=== PATIENT | female | born 1940 | race Caucasian/White ===

== ENCOUNTER 2024-07-21 15:07 | Outpatient (CLI) | payer MEDICARE, SELFPAY ==
--- NOTE | ~2024-07-21 | XR_ITS ---
XR chest 2V 07/21/2024 15:34 Indication: Acute bronchitis Procedure: 2 view chest Comparison: No prior studies for comparison. Findings: The lungs are hyperinflated which is consistent with, but not diagnostic of chronic obstruc tive pulmonary disease. There is apical pleural thickening/scarring. There are coarse interstitial ch anges bilaterally, likely chronic. Cardiomegaly. Status post median sternotomy for CABG. There is a m oderate size hiatal hernia. No significant effusion or pneumothorax. Impression: 1: Coarse bilateral interstitial infiltrates, likely chronic. There is apical pleural thickening/scar ring, also likely chronic. 2: Moderate size hiatal hernia. Reviewed, dictated and finalized at location A. [employer] Impression: 1: Coarse bilateral interstitial infiltrates, likely chronic. There is apical p leural thickening/scarring, also likely chronic. 2: Moderate size hiatal hernia.
== END 2024-07-21 15:08 | disposition home or self-care (01) ==
PROVIDERS: PCP Physician Assistant; Visit Provider Family Medicine
DX: J20.9 Acute bronchitis, unspecified (principal); R91.8 Other nonspecific abnormal finding of lung field; K44.9 Diaphragmatic hernia without obstruction or gangrene
CPT/HCPCS: 71046